=== PATIENT | male | born 1965 | race Caucasian/White ===

== ENCOUNTER 2017-12-04 00:12 | Outpatient (CLI) | payer OTHER, SELFPAY ==
--- NOTE | 2017-12-04 11:25 | DI.MRI_ITS ---
SYMPTOMS/DIAGNOSIS: RIGHT HAMSTRING STRAIN, S76.311A MRI OF THE RIGHT THIGH: Routine noncontrast examination was performed. This examination is limited due to patient motion artifact. There is mild increased signal seen within and adjacent to the conjoined tendon of the hamstring muscles at its insertion site onto the ischial tuberosity, consistent with tendinosis. There is mild T2 hyperintense signal seen within the biceps femoris muscle within the middle and distal thirds. The findings are consistent with a grade 1 muscle strain. The other visualized muscles in the thigh show normal signal and size. No significant muscular fatty atrophy is seen. There is normal marrow signal. No evidence of an occult fracture or avascular necrosis is appreciated. There is a mass anterior to the right femoral neck interposed between the iliopsoas and the vastus lateralis muscles. It measures 5.1 cm transverse x 4.2 cm AP x 8.6 cm craniocaudad. It follows fat signal intensity on all pulse sequences and likely reflects a lipoma. No solid component is seen. No involvement of the underlying bone is noted. IMPRESSION: 1. Right hamstring tendinosis. 2. Grade 1 muscle strain involving the right biceps femoris. 3. 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
== END 2017-12-04 00:32 ==
PROVIDERS: PCP General Practice; Visit Provider Orthopaedic Surgery
DX: S76.311A Strain of muscle, fascia and tendon of the posterior muscle group at thigh level, right thigh, initial encounter (principal); D17.23 Benign lipomatous neoplasm of skin and subcutaneous tissue of right leg
CPT/HCPCS: 73718

== ENCOUNTER 2018-07-14 10:33 | Emergency (ER) | payer SELFPAY ==
[2018-07-14 10:37] VITALS: BP 170/88; PULSE 87; RESP 20; TEMP 36.9; O2SAT 97
--- NOTE | 2018-07-14 11:08 | W.ED.GENAD ---
Discharge Plan Disposition Patient Disposition: HOME Condition: Stable Discharge Details Chief Complaint: Orthopedic Clinical Impression: Pain in right knee, Effusion of right knee Primary Care Provider: Hema Perkins ED Provider: Yoselyn Montano Home Meds and New Rx's Prescriptions: Continued hydrochlorothiazide 12.5 MG capsule 12.5 mg PO QAM RF: 0 lisinopril 10 MG tablet 10 mg PO DAILY RF: 0 ibuprofen 600 MG tablet 600 mg PO Q6H PRN (Reason: Pain) Qty: 20 RF: 0 Discharge Instructions Instructions: Knee Pain (ED) Additional Instructions: Rest, ice, elevate right knee as much as possible. Wear your knee brace to help with compression and pain. If your symptoms do not improve or worsen with continued rest, ice, elevation and Tylenol Motrin, follow-up with orthopedics for evaluation and consideration of physical therapy. Return to the emergency department if you develop any worsening or new concerning symptoms. Discharge Data Discharge Physician: Yoselyn Montano Medical Decision Making 52yo M w/ R knee pain and weakness x 2 weeks status post blunt injury to right ankle with radiation to calf 2 weeks ago. Blood pressure hypertensive. Afebrile. Patient appears nontoxic. Pain in right medial knee with valgus stress but otherwise no ligamentous instability. There is ecchymosis noted to the right medial knee which may have been due to patient wearing a brace over the knee which progressed from the calf. There is no right calf tenderness. Neurovascularly intact. Differential diagnosis includes right knee strain or sprain due to altered gait from right leg injury and continued weightbearing. Patient also is obese and has arthritis in his knee which may be exacerbated by this. There is no history of blunt trauma so doubt fracture. There is no history of significant twisting injury to knees a doubt ligamentous injury. There is no calf tenderness, negative Homans sign, no DVT risk factors, so doubt PE. There is no erythema, fever, and does not appear consistent with septic joint. Discussed with patient at length that there may be no utility in obtaining an x-ray, but he states he will likely follow-up with orthopedics and would like this at this time. He is declining any pain medication. 1200 --x-ray notes tiny effusion and degenerative changes. Patient would now like a dose of Motrin. He is instructed to rest, ice, and elevate right knee as much as possible. He is instructed to limit weightbearing in order to allow his right knee to rest and heal. He is instructed to follow-up with the primary care doctor and with orthopedics if his symptoms do not improve or worsen. He is instructed to return here with any concerns. Medical Records Medical records reviewed: Yes I reviewed the patient's medical records. Imaging Data Radiologic Study: Radiologist's impression: XR Right Knee EXAM DATE/TIME: 07/14/2018 11:08 AM CLINICAL HISTORY: 52 years old, male; Right; Patient HX: RT knee pain, S/P injury to leg 2 weeks ago TECHNIQUE: Imaging protocol: XR Right knee. Views: 3 views. COMPARISON: MR lower extremity RT wo 12/04/2017 4:36 PM FINDINGS: Bones/joints: Tiny knee joint effusion. Minimal degenerative changes within the tibiofemoral and patellofemoral joints. Normal bone density. No fracture or osteonecrosis. Soft tissues: Normal. IMPRESSION: No fracture. HPI General Mode of arrival: ambulatory. Date/Time Provider Initiated Documentation: 07/14/18 10:34. Limitations to Documentation: no limitations. Information obtained by: patient. HPI Narrative: Patient is a 52-year-old male who presents to the ED with a complaint of right knee pain and weakness for the past 2 weeks, getting progressively worse. 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 He states since then the right ankle and calf pain has resolved but now has right knee pain and weakness. He states he has been trying to rest on the weekends but otherwise working and ambulating during the week at work. He states he has been using ice, heat, Motrin and Tylenol without relief. He denies any fever, chest pain or shortness of breath. Patient states he has been told that he has knee arthritis by his orthopedist Dr. Garcia and would likely need a bilateral knee replacement in the future Related Data Home Medications Medication Instructions Recorded Confirmed hydrochlorothiazide 12.5 mg PO QAM 04/12/17 07/14/18 ibuprofen 600 mg PO Q6H PRN #20 tab 04/12/17 07/14/18 lisinopril 10 mg PO DAILY 04/12/17 07/14/18 Previous Rx's Medication Instructions Recorded ibuprofen 600 mg PO Q6H PRN #20 tab 04/12/17 Allergies Allergy/AdvReac Type Severity Reaction Status Date / Time aspirin AdvReac Intermediate HIVES Unverified 07/14/18 10:44 General Stated Complaint: Orthopedic RACHEL: 4 Review of Systems Review of Systems All systems reviewed & are unremarkable except as noted in HPI and below Constitutional Reports as per HPI, Denies chills and Denies fever(s) Eyes Denies blurry vision ENT Denies dizziness, Denies sore throat and Denies throat swelling Cardiovascular Denies chest pain and Denies dyspnea Respiratory Denies cough and Denies dyspnea Gastrointestinal Denies abdominal pain, Denies diarrhea and Denies vomiting Genitourinary Denies hematuria and Denies dysuria Musculoskeletal Denies back pain, Denies numbness and Reports other (R knee pain) Integumentary/Breasts Denies lesions and Denies rash Neurologic Denies dizziness, Denies focal weakness and Denies numbness Allergic/Immunologic Denies throat swelling [facility] Medical History PTSD (post-traumatic stress disorder) (Acute) Depression (Chronic) HTN (hypertension) (Chronic) Surgical History H/O shoulder surgery (Chronic) Social History Smoking/Tobacco Use Status: Current every day Tobacco Type: smokeless tobacco Alcohol Intake: current Alcohol Intake frequency: 3 or more drinks per day Drug use: Never Substance use type: does not use Do you feel safe at home: Yes Do you feel safe in your relationship?: Yes Exam Const General: cooperative, healthy appearing and no acute distress HENMT Head: normal to inspection Mouth: oral mucosae normal Eyes General: appearance normal, both eyes and all related structures Neck Neck: normal visual inspection Resp Effort & Inspection: normal respiratory effort and able to speak in complete sentences Cardio Rate: regular rate Skin General skin exam: no rashes or lesions noted Neuro General: alert, awake and oriented x3 Motor: muscle tone normal throughout Extrem Other: Pain in right medial knee with valgus stress. Negative anterior and posterior drawer test. No ligamentous instability with valgus or varus stress. No right knee edema or erythema. There is a 2 x 2 centimeter area of ecchymosis to the right medial knee without fluctuance, induration. Right popliteal/DP/PT pulses intact. No right calf tenderness. No palpable cord. No tenderness to palpation/edema/ecchymosis/erythema to right ankle or foot. Psych Appearance: grossly normal Affect: normal affect Course Vital Signs Temperature 98.4 F 07/14/18 10:37 Pulse 87 07/14/18 10:37 Respiratory Rate 20 07/14/18 10:37 Blood Pressure 170/88 H 07/14/18 10:37 Pulse Oximetry 97 07/14/18 10:37 Temperature 98.4 F 07/14/18 10:37 Temperature Source Skin 07/14/18 10:37 Pulse 87 07/14/18 10:37 Respiratory Rate 20 07/14/18 10:37 Respiratory Effort Non-Labored 07/14/18 10:42 Blood Pressure 170/88 H 07/14/18 10:37 Blood Pressure Position Sitting 07/14/18 10:37 Pulse Oximetry 97 07/14/18 10:37 Oxygen Delivery Method Room Air 07/14/18 10:37 Oxygen Flow Rate 0 07/14/18 10:37 Pain Level 6 07/14/18 10:37
--- NOTE | 2018-07-14 11:29 | DI.RAD_ITS ---
SYMPTOMS/DIAGNOSIS: RT KNEE PAIN, S/P INJURY TO LEG RIGHT KNEE: Five views. No acute fracture or dislocation is seen. There are mild degenerative changes seen in the knee. There does appear to be a small joint effusion. IMPRESSION: No acute fracture or dislocation.
--- NOTE | 2018-07-14 11:57 | DI.VRAD_ITS ---
EXAM: XR Right Knee EXAM DATE/TIME: 07/14/2018 11:08 AM CLINICAL HISTORY: 52 years old, male; Right; Patient HX: RT knee pain, S/P injury to leg 2 weeks ago TECHNIQUE: Imaging protocol: XR Right knee. Views: 3 views. COMPARISON: MR lower extremity RT wo 12/04/2017 4:36 PM FINDINGS: Bones/joints: Tiny knee joint effusion. Minimal degenerative changes within the tibiofemoral and patellofemoral joints. Normal bone density. No fracture or osteonecrosis. Soft tissues: Normal. IMPRESSION: No fracture. Dictated and Authenticated by: Jorge Castellon MD. Ordering:JOSE LUIS Topete MD
[2018-07-14 12:22] VITALS: BP 174/94; PULSE 74; RESP 14; TEMP 37.1; O2SAT 97
== END 2018-07-14 12:20 | disposition home or self-care (01) ==
PROVIDERS: Emergency Provider Physician Assistant; PCP General Practice
DX: M25.461 Effusion, right knee (principal); M25.451 Effusion, right hip; R53.1 Weakness
CPT/HCPCS: 73562; 99283; 99282

== ENCOUNTER 2019-08-12 07:34 | Emergency (ER) | payer SELFPAY ==
[2019-08-12] VITALS (71 sets, daily range): BP systolic 146–199; BP diastolic 86–118; PULSE 66–90; RESP 13–28; TEMP 36.6; O2SAT 95–98
--- NOTE | 2019-08-12 07:58 | ED.GENADUL_ITS ---
Discharge Plan Disposition Patient Disposition: HOME Condition: Improving Discharge Details Chief Complaint: Nk/Back Pain Clinical Impression: Strain of thoracic back region Primary Care Provider: None,None ED Provider: Yoselyn Montano Home Meds and New Rx's Prescriptions: New lidocaine [Lidoderm] 5 % adhesive patch,medicated 1 patch TP DAILY Qty: 15 RF: 0 Continued ibuprofen 600 MG tablet 600 mg PO Q6H PRN (Reason: Pain) Qty: 20 RF: 0 Discharge Instructions Instructions: Muscle Strain (ED) Additional Instructions: Alternate ice and heat to the affected area(s) several times daily for 20 minutes at a time. Alternate tylenol and motrin as needed and directed for pain. Use Lidoderm patch as needed and directed. Follow-up with your primary care doctor in 1 week for reevaluation and for management of your high blood pressure and to discuss consideration of possible outpatient cardiac rehabilitation program director for further evaluation of your intermittent sensation of heart fluttering. Return to the emergency department with any worsening or new concerning symptoms. Stand Alone Forms: Work Release Discharge Data Discharge Date/Time-TO BE ENTERED AT DEPARTURE: 08/12/19 09:40 Discharge Physician: Yoselyn Montano Medical Decision Making 0800 -- 53-year-old male with a history of hypertension, morbid obesity, daily alcohol drinker presents with right mid back pain x3 days that may have occurred after lifting a produce box at work. Pain worse with deep breath and movement. Does also admit to once monthly episodes of heart fluttering for the past year but denies any chest pain, fever, cough, shortness of breath. At least 1 year because he forgets . EKG notes a rate of 82, sinus, no acute ST ischemic changes. BP on arrival 178/118, remainder vitals within normal limits. He appears nontoxic. He has localized area of tenderness to the right mid posterior lateral back. No evidence of rash or trauma. Considering patient's age, hypertension, morbid obesity, will obtain a cardiac work-up including d-dimer and chest x-ray and place a lidoderm patch and Toradol and reassess. 0930 --labs and imaging reviewed and unremarkable. D-dimer negative. Troponin negative. Rib and chest x-ray negative. Patient reassessed -he admits to significant relief of pain and is requesting to go home. We will send with work note to recommend modified duty over the next week. Advised to alternate ice and heat, Tylenol and Motrin and use Lidoderm patches as needed. He is also advised to make an appointment with his primary care doctor for continued monitoring of his blood pressure and for further assessment of palpitations with outpatient cardiac rehabilitation program director. Usual and customary return precautions given prior to discharge. Medical Records Medical records reviewed: Yes I reviewed the patient's medical records. Imaging Data Radiologic Study: Radiologist's impression: XR ribs RT w PA & lat chest CLINICAL HISTORY: r/o acute fx/disease. COMPARISON: No exams were available for comparison FINDINGS: LUNGS:Clear. No pleural abnormality seen. HEART: Normal. MEDIASTINUM: Normal. BONES: No displaced rib fracture is seen. The spine appears intact. There are degenerative and postsurgical changes at the AC joint. No shoulder dislocation is seen. OTHER FINDINGS: None. IMPRESSION: 1. Unremarkable radiographic appearance of the right ribs. 2. No acute pulmonary findings. Lab Data Lab results reviewed: Yes I reviewed the patient's lab results. Labs: Laboratory Tests Range/Units 08/12/19 08/12/19 08/12/19 08:21 08:21 08:21 WBC (4.4-10.8) k/cumm 8.00 RBC (4.50-6.00) m/cumm 4.97 Hgb (13.5-17.5) g/dL 15.2 Hct (40.0-50.0) % 46.0 MCV (80-95) fL 92.6 MCH (27.0-33.0) pg 30.6 MCHC (32.0-36.0) g/dL 33.0 RDW (11.8-14.1) % 14.0 Plt Count (130-400) x1000/uL 240 MPV (8.0-11.0) fL 10.2 Immature Gran % % 0.5 Neutrophils % 67.5 Lymphocytes % 19.0 Monocytes % 9.5 Eosinophils % 3.0 Basophils % 0.5 Absolute Neutrophils (1.2-6.7) k/cumm 5.40 Absolute Lymphocytes (1.2-3.4) k/cumm 1.52 Absolute Monocytes (0.11-0.7) k/cumm 0.76 H Absolute Eosinophils (0.0-0.7) k/cumm 0.24 Absolute Basophils (0.0-0.2) k/cumm 0.04 PT (9.3-11.0) sec 9.9 INR (0.9-1.1) 1.0 APTT (21.0-31.4) sec 25.0 D-Dimer (<500) ng/mlFEU 410 Sodium (136-145) mmol/L 138 Potassium (3.5-5.1) mmol/L 4.3 Chloride (98-107) mmol/L 103 Carbon Dioxide (21.0-32.0) mmol/L 28.0 Anion Gap (3-11) mmol/L 7.0 BUN (7-18) mg/dL 13 Creatinine (0.70-1.30) mg/dL 0.99 Estimated GFR/1.73 m2 (mL/min/1.73m2) >= 60.00 Glucose (74-106) mg/dL 115 H Calcium (8.5-10.1) mg/dL 8.8 Magnesium (1.8-2.4) mg/dL 2.2 Total Bilirubin (0.2-1.0) mg/dL 0.3 AST (15-37) U/L 28 ALT (16-63) U/L 50 Alkaline Phosphatase (46-116) U/L 57 Troponin I (<0.06) ng/mL < 0.05 Total Protein (6.4-8.2) g/dL 7.4 Albumin (3.4-5.0) g/dL 3.6 ECG Data Attestation: I personally reviewed and interpreted this ECG (s) as follows: Interpretation: Rate of 82, sinus, no acute ST elevation or depression. [place] 172. QTc 432. QRS 104. HPI General Mode of arrival: ambulatory . Date/Time Provider Initiated Documentation: 08/12/19 07:57 . Limitations to Documentation: no limitations . Information obtained by: patient . HPI Narrative: Patient is a 53-year-old with a history of morbid obesity, hypertension noncompliant with medications, daily alcohol drinker presents for right posterior mid back pain for the past 3 days. Patient states he was lifting an approximate 50 pound produce box at work 3 days ago and states he thinks he may have tweaked something , but is unsure if this was the cause of his pain. He states the pain is worse with deep breath, bending over and with some movement. He has taken ibuprofen without relief. He did rest yesterday without significant relief. He denies any fever, cough, chest pain, shortness of breath, nausea, vomiting, diarrhea, urinary symptoms. He states he called out of work today at [employer] due to the pain. Patient also states that 2 days ago he noted a fluttering in his chest which lasted approximately 5 to 6 seconds and then resolved. He states this has been occurring once monthly over the past year but he is unsure of any aggravating or alleviating factors. He does drink approximately a sixpack of beer daily and states he last drank this yesterday. He denies any drug use. Related Data Home Medications Medication Instructions Recorded Confirmed ibuprofen 600 mg PO Q6H PRN #20 tab 04/12/17 08/12/19 lidocaine [Lidoderm] 1 patch TP DAILY #15 each 08/12/19 Previous Rx's Medication Instructions Recorded ibuprofen 600 mg PO Q6H PRN #20 tab 04/12/17 lidocaine [Lidoderm] 1 patch TP DAILY #15 each 08/12/19 Allergies Allergy/AdvReac Type Severity Reaction Status Date / Time aspirin AdvReac Intermediate HIVES Unverified 08/12/19 07:42 General Stated Complaint: Nk/Back Pain RACHEL: 3 Review of Systems All systems reviewed & are unremarkable except as noted in HPI and below Constitutional Constitutional: Reports as per HPI, Denies chills and Denies fever(s) Eyes Eyes: Denies blurry vision ENT Ears, Nose, Mouth, and Throat: Denies dizziness, Denies sore throat and Denies throat swelling Cardiovascular Cardiovascular: Denies chest pain and Denies dyspnea Respiratory Respiratory: Denies cough and Denies dyspnea Gastrointestinal Gastrointestinal: Denies abdominal pain, Denies diarrhea and Denies vomiting Genitourinary Genitourinary: Denies hematuria and Denies dysuria Musculoskeletal Musculoskeletal: Reports back pain (R mid) and Denies numbness Integumentary/Breasts Skin/Breast: Denies lesions and Denies rash Neurologic Neurologic: Denies dizziness, Denies localized weakness and Denies numbness Allergic/Immunologic Allergic/Immunologic: Denies throat swelling [facility] Social History Smoking/Tobacco Use Status: Current every day Tobacco Type: smokeless tobacco Alcohol Intake: current Alcohol Intake frequency: 3 or more drinks per day Drug use: Never Substance use type: does not use Do you feel safe at home: Yes Do you feel safe in your relationship?: Yes Exam Const General: cooperative, healthy appearing and no acute distress HENMT Head: normal to inspection Face and sinus: normal facial exam Eyes General: appearance normal, both eyes and all related structures EOM: EOM intact bilaterally Neck Neck: normal visual inspection and No submandibular swelling Lymphatic: no lymphadenopathy noted Chest Chest: normal inspection of the chest and no tenderness Resp Effort & Inspection: normal respiratory effort and able to speak in complete sentences Auscultation: clear to auscultation bilaterally Cardio Rate: regular rate Rhythm: regular rhythm GI Inspection: normal to inspection Palpation: soft, not firm, not rigid and nontender Auscultation: normal bowel sounds Male General Exam: Yes normal external exam Back/Spine/Pelvis Thoracic/Lumbar Spine: thoracic and lumbar spine normal to inspection Pelvis: no pain with anterior-posterior compression Back/spine/pelvis image: 1. Localized area of tenderness palpation to right mid posterior lateral back. No evidence of rash, lesions, erythema, edema, ecchymosis. Skin General skin exam: no rashes or lesions noted Neuro General: patient alert, patient awake and patient oriented x3 Cognition: normal cognition Speech: speech normal Motor: muscle tone normal throughout Sensory Exam: no sensory deficits noted Extrem General: normal to inspection, full ROM, capillary refill normal, no calf tenderness bilaterally and no edema Psych Appearance: grossly normal Mental Status: mental status grossly normal Speech and Movement: speech and movement normal Affect: normal affect Course Vital Signs Vital signs: Vital Signs Temperature 97.9 F 08/12/19 07:38 Pulse 90 08/12/19 07:38 Respiratory Rate 16 08/12/19 07:38 Blood Pressure 178/118 H 08/12/19 07:38 Pulse Oximetry 97 08/12/19 07:38 Temperature 97.9 F 08/12/19 07:38 Temperature Source Skin 08/12/19 07:38 Pulse 90 08/12/19 07:38 Pulse 82 08/12/19 07:50 Respiratory Rate 15 08/12/19 07:50 Respiratory Effort Non-Labored 08/12/19 07:50 Blood Pressure 178/118 H 08/12/19 07:38 Blood Pressure Position Sitting 08/12/19 07:38 Pulse Oximetry 97 08/12/19 07:50 Oxygen Delivery Method Room Air 08/12/19 07:38 Oxygen Flow Rate 0 08/12/19 07:38 Pain Level 6 08/12/19 07:38
[2019-08-12] MEDS: Lidocaine 5% Patch 1 PATCH TP (08:30)
[2019-08-12] MEDS: Ketorolac 30 MG/ML VIAL IVP (08:30)
[2019-08-12] MEDS: Normal Saline Flush 10 ML SYR IVP (08:37)
[2019-08-12 08:49] LABS: Abs Immature Grans 0.04 k/cumm (0.0-0.09); Absolute Basophil Count 0.04 k/cumm (0.0-0.2); Absolute Eosinophil Count 0.24 k/cumm (0.0-0.7); Absolute Lymphocyte Count 1.52 k/cumm (1.2-3.4); Absolute Monocyte Count 0.76 k/cumm (0.11-0.7); Basophils % 0.5; HGB 15.2 g/dL (13.5-17.5); Immature Grans % 0.5 %; Mean Corpuscular Hemoglobin 30.6 pg (27.0-33.0); Mean Corpuscular Volume 92.6 fL (80-95); Mean Platelet Volume 10.2 fL (8.0-11.0); Monocytes % 9.5; Neutrophils % 67.5; Platelet Count 240 x1000/uL (130-400); RBC 4.97 m/cumm (4.50-6.00)
[2019-08-12 08:52] LABS: ALT 50 U/L (16-63); AST 28 U/L (15-37); Albumin 3.6 g/dL (3.4-5.0); Alkaline Phosphatase 57 U/L (46-116); BUN 13 mg/dL (7-18); Bilirubin, Total 0.3 mg/dL (0.2-1.0); CREATININE 0.99 mg/dL (0.70-1.30); Calcium 8.8 mg/dL (8.5-10.1); Chloride 103 mmol/L (98-107); Glucose 115 mg/dL (74-106); Magnesium 2.2 mg/dL (1.8-2.4); Potassium 4.3 mmol/L (3.5-5.1); Sodium 138 mmol/L (136-145); Total Protein 7.4 g/dL (6.4-8.2)
[2019-08-12 08:53] LABS: Prothrombin Time 9.9 sec (9.3-11.0); Troponin I < 0.05 ng/mL (<0.06)
--- NOTE | 2019-08-12 08:55 | DI.RAD_ITS ---
CLINICAL HISTORY: r/o acute fx/disease. COMPARISON: No exams were available for comparison FINDINGS: LUNGS:Clear. No pleural abnormality seen. HEART: Normal. MEDIASTINUM: Normal. BONES: No displaced rib fracture is seen. The spine appears intact. There are degenerative and posts urgical changes at the AC joint. No shoulder dislocation is seen. OTHER FINDINGS: None. IMPRESSION: 1. Unremarkable radiographic appearance of the right ribs. 2. No acute pulmonary findings.
[2019-08-12 09:08] LABS: D-Dimer 410 ng/mlFEU (<500)
== END 2019-08-12 09:40 | disposition home or self-care (01) ==
PROVIDERS: Emergency Provider Physician Assistant
DX: S29.012A Strain of muscle and tendon of back wall of thorax, initial encounter (principal); X50.0XXA Overexertion from strenuous movement or load, initial encounter; R00.2 Palpitations; I10 Essential (primary) hypertension
CPT/HCPCS: 80053; 93005; 96374; 99284; 71046; 71100; 83735; 84484; 85025; 85379; 85610; 85730; 93010; J1885

== ENCOUNTER 2020-04-18 17:17 | Emergency (ER) | payer MEDICAID, SELFPAY ==
[2020-04-18] VITALS (30 sets, daily range): BP systolic 36–156; BP diastolic 16–80; PULSE 59–97; RESP 9–19; TEMP 36.6; O2SAT 89–100
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
--- NOTE | 2020-04-18 17:15 | RT.EKG_ITS ---
APPROVED REPORT Exam: Resting ECG Patient Location: E HR:97 bpm ECG Measurements Heart Rate 97 AXIS RI 149 P 9 QRSd 100 QRS -21 QT 365 T 33 QTc 464 Conclusion Sinus rhythm...normal P axis, V-rate 60- 99
[2020-04-18 17:25] LABS: Abs Immature Grans 0.09 10^3/uL (0.0-0.06); Absolute Lymphocyte Count 1.49 10^3/uL (1.2-3.4); Absolute Monocyte Count 0.82 10^3/uL (0.1-0.8); Basophils % 0.4; HCT 44.7 % (40.0-50.0); HGB 14.6 g/dL (13.5-17.5); Immature Grans % 0.5; Lymphocytes % 8.2; MCH 30.3 pg (27.0-33.0); MCHC 32.7 % (32.0-36.0); MCV 92.7 fL (80-95); MPV 10.3 fL (8.0-11.0); Monocytes % 4.5; Neutrophils % 85.4; Nucleated RBC 0 %; Platelet Count 229 10^3/uL (130-400); RBC 4.82 10^6/uL (4.36-5.78); RDW 13.2 % (11.8-14.1); RDW-SD 45.1 fL; WBC 18.22 10^3/uL (4.4-10.8)
[2020-04-18 17:30] LABS: Absolute Basophil Count 0.07 10^3/uL (0.0-0.2); Absolute Eosinophil Count 0.18 10^3/uL (0.0-0.7); Absolute Neutrophil Count 15.56 10^3/uL (1.2-6.7)
[2020-04-18] MEDS: Normal Saline 1,000 ML 1000 ML IV (17:34)
[2020-04-18 17:51] LABS: PTT Activated 19.9 sec (21.0-27.5); Prothrombin Time 10.4 sec (9.3-11.0)
[2020-04-18 18:17] LABS: ALT 69 U/L (16-63); AST 49 U/L (15-37); Albumin 3.4 g/dL (3.4-5.0); Alkaline Phosphatase 62 U/L (46-116); Anion Gap 7.3 mmol/L (3-11); BUN 17 mg/dL (7-18); Bilirubin, Total 0.3 mg/dL (0.2-1.0); CO2 26.7 mmol/L (21.0-32.0); CREATININE 1.3 mg/dL (0.70-1.30); Calcium 8.4 mg/dL (8.5-10.1); Chloride 106 mmol/L (98-107); Estimated GFR 57.53 (mL/min/1.73m2); Glucose 153 mg/dL (74-106); Sodium 140 mmol/L (136-145); Total Protein 6.7 g/dL (6.4-8.2)
[2020-04-18 18:18] LABS: Troponin I < 0.05 ng/mL (<0.06)
[2020-04-18] MEDS: Omnipaque 350 MG/ML 100 ML BTL IV (18:46)
[2020-04-18] MEDS: HYDROmorphone 2 MG/ML VIAL (18:46)
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
--- NOTE | 2020-04-18 19:15 | RT.EKG_ITS ---
APPROVED REPORT Exam: Resting ECG Patient Location: E HR:73 bpm ECG Measurements Heart Rate 73 AXIS AR 168 P 50 QRSd 102 QRS 68 QT 406 T 50 QTc 446 Conclusion Sinus rhythm...normal P axis, V-rate 60- 99
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
--- NOTE | 2020-04-18 19:51 | DI.CT_ITS ---
EXAM: CT THORACIC LUMBAR SPINE REC CLINICAL HISTORY: [place] [facility] [place] [facility] [place]CHNIQUE: COMPARISON: CT RENAL COLIC WO CONTRAST from 04/12/2017 FINDINGS: Thoracic spine: No evidence of fracture nor listhesis. No facet malalignment. No lytic osseous lesi ons. Degenerative multilevel disc disease noted as well as multilevel osteophytes. Sclerotic bone d ensity noted in T2 vertebral body which is most probably a benign bone island. T8 and T10 vertebral body hemangiomas are noted. No evidence acute compromise of the thoracic spinal canal No rib fracture seen Lumbar spine: No acute fractures evident. There are pars defects at L5 level with 5 millimeters ante rolisthesis L5 upon S1. Also degenerative disc disease at L5-S1 level. There is some foraminal L5-S 1 level to the listhesis. No prominent central canal stenosis. Sclerotic bone density in the sacrum is most probably benign bone. IMPRESSION: 1. No evidence of lumbar spine fracture. 2. Pars defects at L5 level with grade 1 anterolisthesis of L5 upon S1 noted. There is also signific ant degenerative disc disease at L5-S1 level.
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
== END 2020-04-18 20:10 | disposition short-term general hospital (02) ==
PROVIDERS: Physician Assistant; Emergency Provider Student in an Organized Health Care Education/Training Program
DX: S20.212A Contusion of left front wall of thorax, initial encounter (principal); S30.1XXA Contusion of abdominal wall, initial encounter; R55 Syncope and collapse; I95.89 Other hypotension; V43.02XA Car driver injured in collision with other type car in nontraffic accident, initial encounter
CPT/HCPCS: 36415; 74177; 80053; 86850; 86900; 86901; 86920; 93005; 96361; 96374; 96375; 99285; 70450; 71260; 72125; 83735; 84484; 85025; 85610; 85730; 93010; J3490

== ENCOUNTER 2020-08-03 10:14 | Outpatient (REF) | payer MEDICAID, SELFPAY ==
[2020-08-03 20:01] LABS: HCT 51.2 % (40.0-50.0); HGB 16.3 g/dL (13.5-17.5); MCH 28.1 pg (27.0-33.0); MCHC 31.8 % (32.0-36.0); MCV 88.1 fL (80-95); MPV 10.8 fL (8.0-11.0); Platelet Count 243 10^3/uL (130-400); RBC 5.81 10^6/uL (4.36-5.78); RDW 16.3 % (11.8-14.1); RDW-SD 53.1 fL; WBC 8.97 10^3/uL (4.4-10.8)
[2020-08-03 20:20] LABS: ALT 67 U/L (16-63); AST 32 U/L (15-37); Albumin 3.9 g/dL (3.4-5.0); Alkaline Phosphatase 82 U/L (46-116); Anion Gap 11.8 mmol/L (3-11); BUN 12 mg/dL (7-18); Bilirubin, Total 0.3 mg/dL (0.2-1.0); CO2 24.2 mmol/L (21.0-32.0); CREATININE 1.2 mg/dL (0.70-1.30); Calcium 9.4 mg/dL (8.5-10.1); Chloride 106 mmol/L (98-107); Glucose 110 mg/dL (74-106); Potassium 4.6 mmol/L (3.5-5.1); Sodium 142 mmol/L (136-145); Total Protein 7.6 g/dL (6.4-8.2)
[2020-08-04 17:11] LABS: PSA, Screening 0.4 ng/mL (0.0-3.5)
== END 2020-08-03 10:15 | disposition home or self-care (01) ==
LOC: NCHCN 10:14
PROVIDERS: PCP Physician Assistant; Visit Provider Physician Assistant
DX: Z00.00 Encounter for general adult medical examination without abnormal findings (principal); I10 Essential (primary) hypertension; F10.20 Alcohol dependence, uncomplicated
CPT/HCPCS: 80053; 84153; 85027

== ENCOUNTER → 2020-10-15 04:04 | Outpatient (CLI) | payer MEDICAID, SELFPAY ==
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
== END ==
PROVIDERS: PCP Physician Assistant; Visit Provider Student in an Organized Health Care Education/Training Program
DX: M76.71 Peroneal tendinitis, right leg (principal); S90.01XA Contusion of right ankle, initial encounter; M21.6X1 Other acquired deformities of right foot
CPT/HCPCS: 73721

== ENCOUNTER 2021-05-10 15:28 | Outpatient (REF) | payer MEDICAID, SELFPAY ==
[2021-05-10 17:28] LABS: Hemoglobin A1C 6.1 % (<5.7)
[2021-05-10 17:38] LABS: ALT 67 U/L (16-63); AST 32 U/L (15-37); Albumin 3.8 g/dL (3.4-5.0); Alkaline Phosphatase 76 U/L (46-116); Anion Gap 10.9 mmol/L (3-11); BUN 13 mg/dL (7-18); Bilirubin, Total 0.3 mg/dL (0.2-1.0); CO2 26.1 mmol/L (21.0-32.0); Calculated LDL 163 mg/dL (<100); Chloride 103 mmol/L (98-107); Cholesterol 231 mg/dL (<200); Glucose 100 mg/dL (74-106); HDL Cholesterol 48 mg/dL (40-60); Potassium 4.8 mmol/L (3.5-5.1); Sodium 140 mmol/L (136-145); Total Protein 7.4 g/dL (6.4-8.2); Triglyceride 102 mg/dL (<150)
== END 2021-05-10 15:29 | disposition home or self-care (01) ==
LOC: NCHCN 15:28
PROVIDERS: PCP Physician Assistant; Visit Provider Physician Assistant
DX: Z01.818 Encounter for other preprocedural examination (principal); R73.9 Hyperglycemia, unspecified
CPT/HCPCS: 80053; 80061; 83036

== ENCOUNTER 2022-07-13 08:19 | Emergency (ER) | payer MEDICAID, SELFPAY ==
[2022-07-13 08:23] VITALS: BP 155/72; PULSE 89; RESP 20; TEMP 36.9; O2SAT 98
--- NOTE | 2022-07-13 08:40 | ED.GENADUL_ITS ---
Discharge Plan Disposition Patient Disposition: Home Condition: Stable Discharge Details Clinical Impression: Full body hives Primary Care Provider: Dwayne Mansfield ED Provider: Joe Valdez Home Meds and New Rx's Prescriptions: New prednisone 50 mg tablet 50 mg PO DAILY 4 Days Qty: 4 0RF Continued lisinopril 20 mg tablet 20 mg PO DAILY ibuprofen 600 MG tablet 600 mg PO Q6H PRN (Reason: Pain) Qty: 20 0RF Discontinued lidocaine [Lidoderm] 5 % adhesive patch,medicated 1 patch TP DAILY Qty: 15 0RF Patient Comments: no longer using 07/13/22 CT Rx Instructions: leave on most painful area for up to 12 hrs Discharge Instructions Instructions: Urticaria (ED) Additional Instructions: Please continue to monitor your symptoms and return for any new or significant worsening of your condition including swelling of your lips tongue mouth, difficulty breathing, difficulty swallowing. At this time you have been given your first dose of steroids and you may continue svyb-yhe-vqwslib antihistamines such as Benadryl, Claritin, or Zyrtec as directed on packaging. Your prescription for continued steroids will start tomorrow morning and please take daily. Follow-up with your primary care provider if not improving Referrals: Dwayne Mansfield [Primary Care Provider] - Medical Decision Making Patient presenting to the emergency department for chief complaint of hives. He states that these start every time after he has a cold and patient had viral type illness last week which resolved on Sunday but then he started having hives yesterday morning. Patient does state some tingling to his lips otherwise denies all other symptoms. Physical exam shows diffuse full body hives/urticaria without any other specific findings. HEENT exam along with respiratory exam is normal shows no edema or concerning findings for anaphylactic shock. Patient also has not hypotensive tachycardic denies any other associated symptoms. Do not feel that patient needs epinephrine at this point as exam does not clinically correlate with anaphylaxis but will treat patient with antihistamines and steroids. Otherwise patient states that his symptoms have been going on for 45 years and he has had multiple tests and evaluation that have shown nothing. We will recommend that patient follows up with primary care provider if not improving or return for new or worsening symptoms. After discussion of diagnosis and plan of care patient has no further needs, questions, or concerns and states clear understanding to return to the emergency department for any worsening symptoms. This documentation was generated using [employer] dictation system, please disregard any oddities of phrase or misspellings. HPI General Mode of arrival: ambulatory . Date/Time Provider Initiated Documentation: 07/13/22 08:26 . Limitations to Documentation: no limitations . Information obtained by: patient and RN notes reviewed . History of Present Ill fozia 56 year old M presents to the emergency department with the chief complaint of Hives, described as moderate and similar to prior episodes, Patient started experiencing this hour(s) (24) and it has been constant. No relieving factors improve symptom(s), Patient notes no other symptoms.. Patient did receive the following treatments prior to arrival, none Related Data Home Medications Medication Instructions Recorded Confirmed ibuprofen 600 mg tablet 600 mg PO Q6H PRN Pain #20 tabs 18 07/13/22 lisinopril 20 mg tablet 20 mg PO DAILY 09/23/20 07/13/22 prednisone 50 mg tablet 50 mg PO DAILY 4 days #4 tabs 07/13/22 Previous Rx's Medication Instructions Recorded ibuprofen 600 mg tablet 600 mg PO Q6H PRN Pain #20 tabs 04/12/17 prednisone 50 mg tablet 50 mg PO DAILY 4 days #4 tabs 07/13/22 Allergies Allergy/AdvReac Type Severity Reaction Status Date / Time aspirin AdvReac Intermediate HIVES Unverified 07/13/22 08:26 General Stated Complaint: Allergic RACHEL: 3 Review of Systems Eyes Eyes: Denies itchy eyes ENT Ears, Nose, Mouth, and Throat: Denies lip swelling, Denies odynophagia, Denies sore throat, Denies throat swelling and Denies tongue swelling Cardiovascular Cardiovascular: Denies chest pain, Denies syncope and Denies dyspnea Respiratory Respiratory: Denies cough, Denies dyspnea, Denies stridor and Denies wheezing Gastrointestinal Gastrointestinal: Denies nausea, Denies odynophagia and Denies vomiting Integumentary/Breasts Skin/Breast: Reports as per HPI and Reports rash Neurologic Neurologic: Denies syncope Allergic/Immunologic Allergic/Immunologic: Reports as per HPI, Reports urticaria, Denies itchy eyes, Denies lip swelling, Denies throat swelling, Denies tongue swelling and Denies wheezing PFSH All Active Problems (Updated 07/13/22 @ 08:49 by Joe Valdez NP) Full body hives (Acute) Osteochondral defect of talus (Acute) Contusion of right ankle (Acute) Peroneal tendonitis of right lower leg (Acute) Chest wall contusion (Acute) Abdominal contusion (Acute) Near syncope (Acute) Acute hypotension (Acute) Medical History (Updated 07/13/22 @ 08:49 by Joe Valdez NP) Depression HTN (hypertension) PTSD (post-traumatic stress disorder) Surgical History H/O shoulder surgery Social History Smoking/Tobacco Use Status: Current every day Tobacco Type: smokeless tobacco Smoking risk assessment performed?: Yes Alcohol Intake: current Alcohol Intake frequency: 3 or more drinks per day Drug use: Never Substance use type: does not use Do you feel safe at home: Yes Do you feel safe in your relationship?: Yes Exam Const General: cooperative, comfortable and no acute distress Orientation: alert and awake [facility] Head: normal to inspection, normocephalic and atraumatic Ears: external ears normal General nose exam: external nose normal Face and sinus: normal facial exam and no erythema Mouth: oral mucosae normal, lip normal, tongue normal, oropharynx normal, no drooling, no muffled voice and no trismus Throat: posterior oropharynx normal, tonsils normal and uvula midline Neck Neck: normal visual inspection, full ROM, no meningeal signs, trachea midline and supple Resp Effort & Inspection: normal respiratory effort and able to speak in complete sentences Auscultation: clear to auscultation bilaterally Cardio Rate: regular rate Rhythm: regular rhythm Heart Sounds: S1 normal, S2 normal, normal S1 and S2, no click, no gallops, no murmurs and no rubs Skin General skin exam: dry skin (warm) and other (Diffuse hives/urticaria) Neuro General: patient alert, patient awake, patient oriented x3, gait normal and moves all extremities Cognition: normal cognition Speech: speech normal Course Vital Signs Vital signs: Vital Signs Temperature 36.9 C 07/13/22 08:23 Pulse 89 07/13/22 08:23 Respiratory Rate 20 07/13/22 08:23 Blood Pressure 155/72 H 06/08/23 08:23 Pulse Oximetry 98 07/13/22 08:23 Temperature 36.9 C 07/13/22 08:23 Temperature Source Oral 07/13/22 08:23 Pulse 89 07/13/22 08:23 Respiratory Rate 20 07/13/22 08:23 Respiratory Effort Normal 07/13/22 08:24 Respiratory Pattern Normal 07/13/22 08:24 Blood Pressure 155/72 H 07/13/22 08:23 Blood Pressure Position Sitting 07/13/22 08:23 Pulse Oximetry 98 07/13/22 08:23 Oxygen Delivery Method Room Air 07/13/22 08:23 Oxygen Flow Rate 0 07/13/22 08:23 Pain Level 0 07/13/22 08:23 PAWSS Have you Been Recently Intoxicated or Drunk Within the Last 30 days?: No Have you Ever Experienced Previous Episodes of Alcohol Withdrawal?: No Have you ever Experienced Withdrawal Seizures?: No Have you ever Experienced Delirium Tremens(DT)s?: No Have you ever undergone Alcohol Rehabilitation Treatment (i.e, inpt ot outpatient treatment programs)?: No Have you ever Experienced Blackouts?: No Have you ever Combined Alcohol with other Downers within the last 90 days?: No Have you ever Combined Alcohol with any other Substance of Abuse during the last 90 days?: No Result: 0
[2022-07-13] MEDS: Famotidine 20 MG TAB 40 MG PO (08:44)
[2022-07-13] MEDS: predniSONE 20 MG TAB 60 MG PO (08:45)
[2022-07-13] MEDS: diphenhydrAMINE 25 MG CAP 50 MG PO (08:45)
== END 2022-07-13 09:21 | disposition home or self-care (01) ==
PROVIDERS: Emergency Provider Nurse Practitioner Family; PCP Physician Assistant
DX: L50.9 Urticaria, unspecified (principal)
CPT/HCPCS: 99283; 99284; J7512